=== PATIENT | female | born 1980 | race Caucasian/White ===

== ENCOUNTER 2016-10-11 09:25 | Emergency (ER) | payer MEDICAID ==
[~2016-10-11] VITALS: Ht 157.5 cm; Wt 64.2 kg
[2016-10-11] MEDS ORDERED: PRENATAL (09:46)
[2016-10-11 10:04] LABS: BLOOD UREA NITROGEN 4 mg/dL (7-18)
[2016-10-11] MEDS ORDERED: ACETAMINOPHEN 325 MG TABLET PO ONE (10:30)
[2016-10-11] MEDS ORDERED: ACETAMINOPHEN 325 MG TABLET ONE (10:37)
[2016-10-11] MEDS ORDERED: POTASSIUM CHLORIDE 20 MEQ TAB.ER.PRT PO ONE (11:00)
[2016-10-11] MEDS ORDERED: POTASSIUM CHLORIDE 20 MEQ TAB.ER.PRT ONE (11:39)
[2016-10-11 13:16] VITALS: BP 120/72
== END 2016-10-11 13:19 | disposition home or self-care (01) ==
LOC: ED 10:45
DX: O20.0 Threatened abortion (principal); Z3A.12 12 weeks gestation of pregnancy; Z90.49 Acquired absence of other specified parts of digestive tract
CPT/HCPCS: 36415; 76801; 80048; 81001; 82040; 85025; 86901; 99285

== ENCOUNTER 2016-10-28 17:48 | Emergency (ER) | payer MEDICAID ==
[~2016-10-28] VITALS: Ht 157.5 cm; Wt 64.4 kg
[~2016-10-28 17:48] MED LIST: PRENATAL
[2016-10-28] MEDS ORDERED: SODIUM CHLORIDE FLUSH 10ML SYR IVF ONE (18:30)
[2016-10-28 18:59] LABS: PATH.CAST-FLAG NOT PRESENT; SPERM-FLAG NOT PRESENT; SRC-FLAG NOT PRESENT; XTAL-FLAG NOT PRESENT; YLC-FLAG NOT PRESENT
[2016-10-28 19:25] VITALS: BP 99/64
[2016-10-28] MEDS ORDERED: ACETAMINOPHEN 325 MG TABLET PO ONE (20:00)
== END 2016-10-28 20:10 | disposition home or self-care (01) ==
LOC: ED 18:31
DX: O9A.212 Injury, poisoning and certain other consequences of external causes complicating pregnancy, second trimester (principal); S39.91XA Unspecified injury of abdomen, initial encounter; R10.84 Generalized abdominal pain; R31.29 Other microscopic hematuria; V43.62XA Car passenger injured in collision with other type car in traffic accident, initial encounter; Y93.89 Activity, other specified; Y92.410 Unspecified street and highway as the place of occurrence of the external cause; Y99.8 Other external cause status; Z3A.49 Greater than 42 weeks gestation of pregnancy; Z3A.16 16 weeks gestation of pregnancy
CPT/HCPCS: 36415; 76801; 81001; 84702; 85025; 86901; 87086